=== PATIENT | female | born 1970 | race Caucasian/White ===

== ENCOUNTER 2016-10-15 14:24 | Emergency (ER) | payer BC ==
[~2016-10-15 14:24] MED LIST: Ciprofloxacin 500 MG Tab PO ONE
[2016-10-15 14:29] VITALS: BP 156/89
[2016-10-15] MEDS ORDERED: Lidocaine 1% 20 ML MDV ONE (15:17)
[2016-10-15] MEDS ORDERED: Take Home: Ciprofloxacin 500 MG Tab, 2 Tab Pack PO ONE (15:19)
[2016-10-15] MEDS ORDERED: cefTRIAXone 1 GM Vial IM ONE (15:19)
[2016-10-15] MEDS ORDERED: cefTRIAXone 1 GM Vial ONE (15:27)
--- NOTE | 2016-10-15 15:30 | EDM.PDOC ---
ED HPI GENERAL MEDICAL PROBLEM - General Chief Complaint: General Stated Complaint: abdominal pain Time Seen by Provider: 10/15/16 14:45 - History of Present Illness INITIAL COMMENTS - FREE TEXT/NARRATIVE: C/O of lower abdominal pain that is radiating into her back, denies pain with urination at this time. Onset: Today Duration: Minutes: Location: Reports: Abdomen, Back Quality: Reports: Sharp, Stabbing Severity: Moderate Improves with: Reports: None Worsens with: Reports: None Lower Anterior Abdominal Pain Score (Numeric/FACES): 6 - Related Data Allergies Allergy/AdvReac Type Severity Reaction Status Date / Time Penicillins Allergy Rash Verified 10/15/16 14:30 Home Meds: Home Meds Lisinopril 20 mg PO DAILY 10/15/16 [History] Past Medical History [employer] History: Reports: Social & Family History - Tobacco Use Smoking Status *Q: Never Smoker ED ROS GENERAL - Review of Systems Review Of Systems: ROS reveals no pertinent complaints other than HPI. ED EXAM, GENERAL - Physical Exam Exam: See Below Free Text/Narrative:: Mid lower abdominal tenderness noted. Exam Limited By: No Limitations General Appearance: Alert, WD/WN Ears: Normal External Exam Nose: Normal Inspection Throat/Mouth: Normal Inspection Head: Atraumatic Neck: Normal Inspection Respiratory/Chest: No Respiratory Distress Cardiovascular: Normal Peripheral Pulses GI/Abdominal: Normal Bowel Sounds, Soft, Tender Back Exam: Normal Inspection Extremities: Normal Inspection Neurological: Alert, Oriented Skin Exam: Warm, Dry Course - Vital Signs Last Recorded V/S: Last Vital Signs Temp 98.4 F 10/15/16 14:25 Pulse 95 10/15/16 14:25 Resp 18 10/15/16 14:25 BP 156/89 H 10/15/16 14:25 Pulse Ox 97 10/15/16 14:25 - Orders/Labs/Meds Orders: Active Orders 24 hr Category Date Time Status CULTURE URINE [RM] Stat Lab 10/15/16 14:42 Received Labs: Laboratory Tests 10/15/16 Range/Units 14:42 Urine Color Yellow (YELLOW) Urine Appearance Slightly cloudy (CLEAR) Urine pH 5.5 (4.5-8.0) Ur Specific [place] 1.014 (1.003-1.020) Urine Protein Trace H (NEGATIVE) mg/dL Urine Glucose (UA) Negative (NEGATIVE) mg/dL Urine Ketones 80 H (NEGATIVE) mg/dL Urine Occult Blood Large H (NEGATIVE) Urine Nitrite Negative (NEGATIVE) Urine Bilirubin Negative (NEGATIVE) Urine Urobilinogen 0.2 (0.2-1.0) EU/dL Ur Leukocyte Esterase Large H (NEGATIVE) Urine RBC 5-10 H (0-5) /HPF Urine WBC 75-100 H (0-5) /HPF Urine WBC Clumps Occasional H (NOT SEEN) /HPF Ur Squamous Epith Cells Few H (NOT SEEN) /HPF Urine Bacteria Few H (NOT SEEN) /HPF Urine Mucus Few H (NOT SEEN) /HPF Urinalysis Comment Meds: Medications Discontinued Medications Generic Name Dose Route Start Last Admin Trade Name Freq PRN Reason Stop Dose Admin Ceftriaxone Sodium 1 gm 10/15/16 15:19 Rocephin IM 10/15/16 15:20 ONETIME ONE Ciprofloxacin 1 packet 10/15/16 15:19 Take Home: Ciprofloxacin 500 Mg, 2 Tab Pack PO 10/15/16 15:20 ONETIME ONE Departure - Departure Time of Disposition: 15:27 Disposition: Home, Self-Care 01 Condition: Good Clinical Impression: UTI (urinary tract infection) - Discharge Information Instructions: Urinary Tract Infection, Adult Forms: ED Department Discharge Additional Instructions: Drink plenty of fluids, take your medications as prescribed. - My Orders Last 24 Hours: My Active Orders 10/15/16 14:42 CULTURE URINE [RM] Stat - Assessment/Plan Last 24 Hours: My Active Orders 10/15/16 14:42 CULTURE URINE [RM] Stat
== END 2016-10-15 16:05 | disposition home or self-care (01) ==
LOC: CC.ED 14:24
DX: N39.0 Urinary tract infection, site not specified (principal); Z88.0 Allergy status to penicillin
CPT/HCPCS: 81001; 87086; 96372; 99283; A9270; J0696; 87088; 87186

== ENCOUNTER 2016-10-17 19:30 | Inpatient (IN) | payer BC ==
[2016-10-17] MEDS ORDERED: Ondansetron 4 MG/2 ML SDV IVPUSH STA (19:48)
[2016-10-17] MEDS ORDERED: Morphine 4 MG/ML Syringe IVPUSH ONE (19:48)
[2016-10-17] MEDS ORDERED: Acetaminophen 325 MG Tab PO ONE (19:49)
[2016-10-17] MEDS ORDERED: Lactated Ringers 1,000 ML ONE (19:50)
[2016-10-17] MEDS ORDERED: Lactated Ringers 1,000 ML IV SCH (20:00)
[2016-10-17] MEDS ORDERED: metroNIDAZOLE/Normal Saline 500 MG in Premix Bag 1 BAG IV ONE (20:10)
[2016-10-17] MEDS ORDERED: Levofloxacin/Dextrose 5%-Water 500 MG in Premix Bag 1 BAG IV ONE (20:10)
[2016-10-17 20:12] LABS: CHLORIDE,CL 102 mEq/L (98-106); SODIUM,NA 138 mEq/L (136-145)
--- NOTE | 2016-10-17 23:07 | EDM.PDOC ---
ED HPI GENERAL MEDICAL PROBLEM - General Chief Complaint: Abdominal Pain Stated Complaint: abd pain Time Seen by Provider: 10/17/16 19:40 Source of Information: Reports: Patient History Limitations: Reports: No Limitations - History of Present Illness INITIAL COMMENTS - FREE TEXT/NARRATIVE: Izzy is a 46 yo female who presents to the ER via private vehicle with concerns of abdominal pain. States she was seen in the ER on Sunday afternoon and started on Ciprofloxacin and given 1 gram of Rocephin for a urinary tract infection. She states she did quite well yesterday and this morning. This afternoon she became nauseated and just didn't feel well. Admits to diarrhea yesterday but related this to the antibiotics. States around 6:30 this evening the pain progressively worsened. States she has been running a fever as well. States when pain previously started prior to coming in on Sunday the pain was in her back as well. She was concerned of a kidney stone. 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 Denies: Bloody Stool, Constipation, Flatus, Hematochezia, Melena : Reports: No Symptoms. Denies: Discharge, Flank Pain, Urgency ED EXAM, GI/ABD - Physical Exam Exam: See Below Exam Limited By: No Limitations General Appearance: Alert, Moderate Distress Ears: Normal External Exam, Hearing Grossly Normal, Normal TMs Nose: Normal Inspection, No Blood Throat/Mouth: Normal Inspection, Normal Lips, Normal Teeth, Normal Gums, Normal Oropharynx, Normal Voice, No Airway Compromise Head: Atraumatic, Normocephalic Neck: Normal Inspection, Supple Respiratory/Chest: No Respiratory Distress, Lungs Clear, Normal Breath Sounds, No Accessory Muscle Use Cardiovascular: Normal Peripheral Pulses, Regular Rate, Rhythm, No Edema, No Murmur GI/Abdominal Exam: Guarding, Rigid, Tender (RLQ and periumbilical), Abnormal Bowel Sounds (hyperactive). No: Hernia, Mass (Female) Exam: Normal External Exam, Cervical Discharge, Vaginal Discharge. No: Adnexal Mass, Adnexal Tenderness, Cervix Motion Tenderness, Enlarged Uterus , Vaginal Bleeding Extremities: Normal Inspection, No Pedal Edema, Normal Capillary Refill Neurological: Alert, Oriented, Normal Cognition Psychiatric: Normal Affect, Normal Mood Skin Exam: Dry, Intact, Normal Color, No Rash, Increased Warmth Course - Vital Signs Last Recorded V/S: Last Vital Signs Temp 102.6 F H 10/17/16 19:30 Pulse 107 H 10/17/16 19:30 Resp 20 10/17/16 19:30 BP 150/83 H 10/17/16 19:30 Pulse Ox 100 10/17/16 19:30 - Orders/Labs/Meds Orders: Active Orders 24 hr Category Date Time Status Abdomen Pelvis w Cont [CT] Stat Exams 10/17/16 19:49 Taken CHLAMYDIA/GC NUCLEIC ACID AMP [MREF] Stat Lab 10/17/16 22:30 Received CULTURE BLOOD [BC] Stat Lab 10/17/16 19:52 Received CULTURE BLOOD [BC] Stat Lab 10/17/16 19:52 Received CULTURE GENITAL [RM] Stat Lab 10/17/16 22:30 Received Lactated Ringers [Ringers, Lactated] 1,000 ml Med 10/17/16 20:00 Active IV ASDIRECTED Blood Culture x2 Reflex Set [OM.PC] Stat Oth 10/17/16 19:40 Ordered Medication Orders Lactated Ringer's (Ringers, Lactated) 1,000 mls @ 999 mls/hr IV ASDIRECTED DRISS Last Admin: 10/17/16 20:26 Dose: 999 mls/hr Labs: Laboratory Tests 07/25/17 07/25/17 07/25/17 Range/Units 19:52 19:52 22:30 WBC 10.2 H (5.0-10.0) 10^3/uL RBC 4.44 (4.00-5.50) 10^6/uL Hgb 12.0 (12.0-16.0) g/dL Hct 36.4 L (37.0-47.0) % MCV 82.0 (82.0-94.0) fL MCH 27.0 (27.0-32.0) pg MCHC 33.0 (33.0-38.0) g/dL RDW Coeff of Gale 12.6 (11.0-15.0) % Plt Count 215 (150-400) 10^3/uL Neut % (Auto) 82.5 (35-85) % Lymph % (Auto) 8.1 L (10-55) % [place] % (Auto) 8.7 (0-16) % Eos % (Auto) 0.5 (0-5) % Baso % (Auto) 0.2 (0-3) % Neut # (Auto) 8.41 H (1.80-7.00) 10^3/uL Lymph # (Auto) 0.83 L (1.00-4.80) 10^3/uL [place] # (Auto) 0.89 H (0.00-0.80) 10^3/uL Eos # (Auto) 0.05 (0.00-0.45) 10^3/uL Baso # (Auto) 0.02 10^3/uL Sodium 138 (136-145) mEq/L Potassium 3.4 L (3.5-5.0) mEq/L Chloride 102 (98-106) mEq/L Carbon Dioxide 24 (21-32) mmol/L BUN 12 (7-18) mg/dL Creatinine 1.1 H (0.6-1.0) mg/dL Est Cr Clr Drug Dosing TNP Estimated GFR (MDRD) 53 L (>=60) mL/min Glucose 107 H D (75-99) mg/dL Calcium 9.0 (8.4-10.1) mg/dL Total Bilirubin 1.0 (0.0-1.0) mg/dL AST 63 H (15-37) U/L ALT 64 (12-78) U/L Alkaline Phosphatase 159 H (46-116) U/L C-Reactive Protein 15.8 H (0.2-0.8) mg/dL Total Protein 7.3 (6.4-8.2) g/dL Albumin 3.4 (3.4-5.0) g/dL Amylase 31 (25-115) U/L Urine Color [place] (YELLOW) Urine Appearance Slightly cloudy (CLEAR) Urine pH 5.5 (4.5-8.0) Ur Specific [place] 1.015 (1.003-1.020) Urine Protein Trace H (NEGATIVE) mg/dL Urine Glucose (UA) Negative (NEGATIVE) mg/dL Urine Ketones 40 H (NEGATIVE) mg/dL Urine Occult Blood Small H (NEGATIVE) Urine Nitrite Negative (NEGATIVE) Urine Bilirubin Negative (NEGATIVE) Urine Urobilinogen 0.2 (0.2-1.0) EU/dL Ur Leukocyte Esterase Negative (NEGATIVE) Urine RBC 0-5 (0-5) /HPF Urine WBC 0-5 (0-5) /HPF Ur Epithelial Cells Few H (NOT SEEN) /HPF Meds: Medications Generic Name Dose Route Start Last Admin Trade Name Jose Raul PRN Reason Stop Dose Admin Lactated Ringer's 1,000 mls @ 999 mls/hr 10/17/16 20:00 10/17/16 20:26 Ringers, Lactated IV 999 mls/hr ASDIRECTED DRISS Administration Discontinued Medications Generic Name Dose Route Start Last Admin Trade Name Jose Raul PRN Reason Stop Dose Admin Acetaminophen 650 mg 10/17/16 19:49 10/17/16 20:04 Tylenol PO 10/17/16 19:50 650 mg NOW ONE Administration Lactated Ringer's Confirm 10/17/16 19:50 10/17/16 20:08 Ringers, Lactated Administered 10/17/16 19:51 Not Given Dose 1,000 mls @ as directed .ROUTE .STK-MED ONE Levofloxacin/Dextrose 500 mg/ 100 mls @ 100 mls/hr 10/17/16 20:10 10/17/16 20 :26 Premix IV 10/17/16 21:09 100 mls/hr ONETIME ONE Administration Metronidazole 500 mg/ Premix 100 mls @ 100 mls/hr 10/17/16 20:10 10/17/16 21: 39 IV 10/17/16 21:09 100 mls/hr ONETIME ONE Administration Morphine Sulfate 4 mg 10/17/16 19:48 10/17/16 20:06 Morphine IVPUSH 10/17/16 19:49 4 mg ONETIME ONE Administration Ondansetron HCl 4 mg 10/17/16 19:48 10/17/16 20:05 Zofran IVPUSH 10/17/16 19:49 4 mg NOW STA Administration - Re-Assessments/Exams Free Text/Narrative Re-Assessment/Exam: Izzy was given 4mg of Morphine, 4mg of Zofran, 500mg of Levaquin and 500mg of Flagyl in the ER while waiting for CT scan report with concerns of appendicitis. Pain was well controlled with the Morphine. After radiology report , radiologist was concerned of fluid filled and inflamed fallopian tubes with concerns of PID with possible abscess beginning to form. KELLIE, Wet prep, PAP, culture, G&C were all done. Moderate amount of pus-like drainage noted from the cervical os. No motion tenderness on bimanual exam. Dr. Hollingsworth contacted and advised consulting with [employer]CH [employer]ISTICS SUPERVISOR for further recommendations. Dr. Funk at [facility] in [place] was consulted. Advised starting IV antibiotics. Will initiate IV clindamycin and gentamicin. Temperature was improving after 650mg of Tylenol and currently 98.8. Will admit to Dr. Hollingsworth's services in acute care and agreement per Dr. Hollingsworth after consulting with DIRECTOR MICROBIOLOGY. Both Izzy and her verbalized understanding. She was transferred to the floor in satisfactory condition. Departure - Departure Time of Disposition: 23:00 Disposition: Admitted As Inpatient 64 Clinical Impression: Pelvic inflammatory disease (PID) - Discharge Information Forms: ED Department Discharge - Problem List & Annotations (1) Pelvic inflammatory disease (PID) SNOMED Code(s): 847539142 Code(s): N73.9 - FEMALE PELVIC INFLAMMATORY DISEASE, UNSPECIFIED Status: Acute Current Visit: Yes - My Orders Last 24 Hours: My Active Orders 10/17/16 19:40 Blood Culture x2 Reflex Set [OM.PC] Stat 10/17/16 19:49 Abdomen Pelvis w Cont [CT] Stat 10/17/16 19:52 CULTURE BLOOD [BC] Stat CULTURE BLOOD [BC] Stat 10/17/16 20:00 Lactated Ringers [Ringers, Lactated] 1,000 ml IV ASDIRECTED 10/17/16 22:30 CHLAMYDIA/GC NUCLEIC ACID AMP [MREF] Stat CULTURE GENITAL [RM] Stat - Assessment/Plan Admission H&P: Please use this note as an admission H&P Last 24 Hours: My Active Orders 10/17/16 19:40 Blood Culture x2 Reflex Set [OM.PC] Stat 10/17/16 19:49 Abdomen Pelvis w Cont [CT] Stat 10/17/16 19:52 CULTURE BLOOD [BC] Stat CULTURE BLOOD [BC] Stat 10/17/16 20:00 Lactated Ringers [Ringers, Lactated] 1,000 ml IV ASDIRECTED 10/17/16 22:30 CHLAMYDIA/GC NUCLEIC ACID AMP [MREF] Stat CULTURE GENITAL [RM] Stat
[2016-10-17] MEDS ORDERED: Docusate Sodium 100 MG Cap PO PRN (23:38)
[2016-10-17] MEDS ORDERED: Acetaminophen/HYDROcodone 325-5 MG Tab PO PRN (23:38)
[2016-10-17] MEDS ORDERED: Morphine 2 MG/ML Syringe IVPUSH PRN (23:38)
[2016-10-17] MEDS ORDERED: Temazepam 15 MG Cap PO PRN (23:38)
[2016-10-18] MEDS: Clindamycin Phosphate in D5W 600 MG in Premix Bag 1 BAG IV SCH ×8 (00:41→23:26)
[2016-10-18] MEDS: Clindamycin Phosphate in D5W 300 MG in Premix Bag 1 BAG IV SCH ×8 (00:43→23:30)
[2016-10-18] MEDS: Ibuprofen 200 MG Tab PO PRN (00:46)
[2016-10-18] MEDS: Ketorolac 30 MG/ML SDV IV PRN ×3 (00:46→20:19)
[2016-10-18] MEDS: Lactated Ringers 1,000 ML IV SCH ×2 (00:47→13:02)
[2016-10-18] MEDS: Lisinopril 20 MG Tab PO SCH (07:42)
[2016-10-18] MEDS: Ondansetron 4 MG/2 ML SDV IV PRN ×2 (07:46→15:59)
[2016-10-18 08:05] LABS: CHLORIDE,CL 105 mEq/L (98-106); SODIUM,NA 140 mEq/L (136-145)
--- NOTE | 2016-10-18 09:03 | PCM.PN ---
- General Info Date of Service: 10/18/16 Admission Dx/Problem (Free Text): PID Functional Status: Reports: Pain Controlled, Tolerating Diet, Ambulating, Urinating - Review of Systems General: Reports: Fever. Denies: Weakness, Fatigue HEENT: Reports: No Symptoms Pulmonary: Reports: No Symptoms Cardiovascular: Reports: No Symptoms Gastrointestinal: Reports: Abdominal Pain, Nausea. Denies: Constipation, Decreased Appetite, Diarrhea, Vomiting Genitourinary: Reports: No Symptoms Musculoskeletal: Reports: No Symptoms Skin: Reports: No Symptoms Neurological: Reports: No Symptoms - Patient Data Vitals - Most Recent: Last Vital Signs Temp 98.2 F 10/18/16 04:00 Pulse 76 10/18/16 04:00 Resp 18 10/18/16 04:00 BP 101/65 10/18/16 04:00 Pulse Ox 99 10/18/16 04:00 Weight - Most Recent: 194 lb 10.691 oz I&O - Last 24 Hours: Intake & Output 10/17/16 10/18/16 10/18/16 22:59 06:59 14:59 Intake Total 100 Balance 100 Lab Results Last 24 Hours: Laboratory Results - last 24 hr 10/18/16 10/18/16 Range/Units 07:33 07:33 WBC 10.0 (5.0-10.0) 10^3/uL RBC 3.77 L (4.00-5.50) 10^6/uL Hgb 10.2 L (12.0-16.0) g/dL Hct 31.5 L (37.0-47.0) % MCV 83.6 (82.0-94.0) fL MCH 27.1 (27.0-32.0) pg MCHC 32.4 L (33.0-38.0) g/dL RDW Coeff of Gale 12.6 (11.0-15.0) % Plt Count 196 (150-400) 10^3/uL Neut % (Auto) 77.2 (35-85) % Lymph % (Auto) 10.9 (10-55) % [place] % (Auto) 11.4 (0-16) % Eos % (Auto) 0.4 (0-5) % Baso % (Auto) 0.1 (0-3) % Neut # (Auto) 7.71 H (1.80-7.00) 10^3/uL Lymph # (Auto) 1.09 (1.00-4.80) 10^3/uL [place] # (Auto) 1.14 H (0.00-0.80) 10^3/uL Eos # (Auto) 0.04 (0.00-0.45) 10^3/uL Baso # (Auto) 0.01 10^3/uL Sodium 140 (136-145) mEq/L Potassium 3.4 L (3.5-5.0) mEq/L Chloride 105 (98-106) mEq/L Carbon Dioxide 28 (21-32) mmol/L BUN 8 (7-18) mg/dL Creatinine 0.8 (0.6-1.0) mg/dL Est Cr Clr Drug Dosing 83.63 mL/min Estimated GFR (MDRD) > 60 (>=60) mL/min Glucose 98 (75-99) mg/dL Calcium 8.4 (8.4-10.1) mg/dL C-Reactive Protein 15.8 H (0.2-0.8) mg/dL Med Orders - Current: Current Medications Acetaminophen (Tylenol) 650 mg PO Q4H PRN PRN Reason: Pain (Mild 1-3)/fever Hydrocodone Bitart/Acetaminophen ([place] 325-5 Mg) 1 tab PO Q4H PRN PRN Reason: Pain (moderate 4-6) Docusate Sodium (Colace) 100 mg PO BID PRN PRN Reason: Constipation Gentamicin Sulfate 120 mg/ (Sodium Chloride) 103 mls @ 200 mls/hr IV Q8H [facility] Last Admin: 10/18/16 02:40 Dose: 200 mls/hr Lactated Ringer's (Ringers, Lactated) 1,000 mls @ 125 mls/hr IV ASDIRECTED [facility] Last Admin: 10/18/16 00:47 Dose: 125 mls/hr Clindamycin Phosphate 300 mg/ (Premix) 50 mls @ 100 mls/hr IV Q8H [facility] Last Admin: 10/18/16 07:43 Dose: 100 mls/hr Ibuprofen (Motrin) 400 mg PO Q6H PRN PRN Reason: Pain (mild 1-3) Last Admin: 10/18/16 00:46 Dose: 400 mg Ketorolac Tromethamine (Toradol) 30 mg IV Q6H PRN PRN Reason: Pain (moderate 4-6) Last Admin: 10/18/16 00:46 Dose: 30 mg Lisinopril (Prinivil) 20 mg PO DAILY [facility] Last Admin: 10/18/16 07:42 Dose: 20 mg Morphine Sulfate (Morphine) 2 mg IVPUSH Q2H PRN PRN Reason: Pain (severe 7-10) Ondansetron HCl (Zofran) 4 mg IV Q4H PRN PRN Reason: Nausea/Vomiting Last Admin: 10/18/16 07:46 Dose: 4 mg Temazepam (Restoril) 15 mg PO BEDTIME PRN PRN Reason: Sleep Discontinued Medications Acetaminophen (Tylenol) 650 mg PO NOW ONE Stop: 10/17/16 19:50 Last Admin: 10/17/16 20:04 Dose: 650 mg Lactated Ringer's (Ringers, Lactated) 1,000 mls @ 999 mls/hr IV ASDIRECTED [facility] Last Admin: 10/17/16 20:26 Dose: 999 mls/hr Lactated Ringer's (Ringers, Lactated) Confirm Administered Dose 1,000 mls @ as directed .ROUTE .STK-MED ONE Stop: 10/17/16 19:51 Last Admin: 10/17/16 20:08 Dose: Not Given Levofloxacin/Dextrose 500 mg/ (Premix) 100 mls @ 100 mls/hr IV ONETIME ONE Stop: 10/17/16 21:09 Last Admin: 10/17/16 20:26 Dose: 100 mls/hr Metronidazole 500 mg/ Premix 100 mls @ 100 mls/hr IV ONETIME ONE Stop: 10/17/16 21:09 Last Admin: 10/17/16 21:39 Dose: 100 mls/hr Clindamycin Phosphate 600 mg/ (Premix) 50 mls @ 100 mls/hr IV Q8H [facility] Last Admin: 10/18/16 07:42 Dose: 100 mls/hr Morphine Sulfate (Morphine) 4 mg IVPUSH ONETIME ONE Stop: 10/17/16 19:49 Last Admin: 10/17/16 20:06 Dose: 4 mg Ondansetron HCl (Zofran) 4 mg IVPUSH NOW STA Stop: 10/17/16 19:49 Last Admin: 10/17/16 20:05 Dose: 4 mg - Exam General: Alert, Oriented HEENT: Mucous Membr. Moist/[place] Neck: Supple Lungs: Clear to Auscultation, Normal Respiratory Effort Cardiovascular: Regular Rate, Regular Rhythm GI/Abdominal Exam: Normal Bowel Sounds, Soft, Tender (LLQ and suprapubic area) Extremities: Normal Inspection, No Pedal Edema Skin: Warm, Dry Neurological: No New Focal Deficit - Problem List & Annotations (1) Pelvic inflammatory disease (PID) SNOMED Code(s): 499766311 Code(s): N73.9 - FEMALE PELVIC INFLAMMATORY DISEASE, UNSPECIFIED Status: Acute Priority: High Current Visit: Yes - Problem List Review Problem List Initiated/Reviewed/Updated: Yes - Assessment Assessment:: PID - Plan Plan:: Patient feeling better this am. Did tolerate breakfast although has been experiencing some nausea. States abdomen is much less rigid and less tender than last night. Labs this am note WBC stable at 10, CRP same at 15.8. Wet prep had shown 2+ WBC. UA is negative. Patient had previously been on Cipro for the last 3 days for a UTI but abdominal pain had steadily increased since that time. Will continue with Clindamycin and Gentamicin per ECONOMICS DEPARTMENT CHAIR recommendation. Patient is advised to notify us if pain increases; will monitor fevers, WBC. Await blood cultures and genital culture report.
[2016-10-18] MEDS: Acetaminophen 325 MG Tab PO PRN (15:59)
[2016-10-18] MEDS: Gentamicin 500 MG in Sodium Chloride 0.9% 100 ML IV SCH (21:08)
[2016-10-19] MEDS: Ondansetron 4 MG/2 ML SDV IV PRN (01:03)
[2016-10-19] MEDS: Ketorolac 30 MG/ML SDV IV PRN (03:56)
[2016-10-19] MEDS: Clindamycin Phosphate in D5W 600 MG in Premix Bag 1 BAG IV SCH ×6 (08:16→23:48)
[2016-10-19] MEDS: Clindamycin Phosphate in D5W 300 MG in Premix Bag 1 BAG IV SCH ×6 (08:16→23:52)
[2016-10-19] MEDS: Lisinopril 20 MG Tab PO SCH (08:16)
[2016-10-19] MEDS ORDERED: Sodium Chloride 0.9% 10 ML Syringe FLUSH PRN (08:52)
--- NOTE | 2016-10-19 09:20 | PCM.PN ---
- General Info Date of Service: 10/19/16 Admission Dx/Problem (Free Text): PID Functional Status: Reports: Pain Controlled, Tolerating Diet, Ambulating - Review of Systems General: Reports: Fever, Malaise. Denies: Weakness HEENT: Reports: No Symptoms Pulmonary: Reports: No Symptoms Cardiovascular: Reports: No Symptoms Gastrointestinal: Reports: Abdominal Pain, Diarrhea. Denies: Nausea, Vomiting Genitourinary: Reports: Other (denies any vaginal discharge). Denies: Dysuria, Frequency Musculoskeletal: Reports: No Symptoms Skin: Reports: No Symptoms Neurological: Reports: No Symptoms Psychiatric: Reports: No Symptoms - Patient Data Vitals - Most Recent: Last Vital Signs Temp 97.8 F 10/19/16 07:22 Pulse 88 10/19/16 07:22 Resp 19 10/19/16 07:22 BP 127/72 10/19/16 08:16 Pulse Ox 95 10/19/16 07:22 Weight - Most Recent: 194 lb 10.691 oz I&O - Last 24 Hours: Intake & Output 10/18/16 10/19/16 10/19/16 22:59 06:59 14:59 Intake Total 100 100 Balance 100 100 Lab Results Last 24 Hours: Laboratory Results - last 24 hr 10/19/16 10/19/16 Range/Units 08:00 08:00 WBC 8.2 (5.0-10.0) 10^3/uL RBC 3.66 L (4.00-5.50) 10^6/uL Hgb 10.0 L (12.0-16.0) g/dL Hct 30.7 L (37.0-47.0) % MCV 83.9 (82.0-94.0) fL MCH 27.3 (27.0-32.0) pg MCHC 32.6 L (33.0-38.0) g/dL RDW Coeff of Gale 12.6 (11.0-15.0) % Plt Count 203 (150-400) 10^3/uL Neut % (Auto) 77.7 (35-85) % Lymph % (Auto) 9.7 L (10-55) % [place] % (Auto) 12.1 (0-16) % Eos % (Auto) 0.4 (0-5) % Baso % (Auto) 0.1 (0-3) % Neut # (Auto) 6.36 (1.80-7.00) 10^3/uL Lymph # (Auto) 0.79 L (1.00-4.80) 10^3/uL [place] # (Auto) 0.99 H (0.00-0.80) 10^3/uL Eos # (Auto) 0.03 (0.00-0.45) 10^3/uL Baso # (Auto) 0.01 10^3/uL Sodium 139 (136-145) mEq/L Potassium 3.5 (3.5-5.0) mEq/L Chloride 104 (98-106) mEq/L Carbon Dioxide 27 (21-32) mmol/L BUN 8 (7-18) mg/dL Creatinine 1.0 (0.6-1.0) mg/dL Est Cr Clr Drug Dosing 66.90 mL/min Estimated GFR (MDRD) 59 L (>=60) mL/min Glucose 84 (75-99) mg/dL Calcium 8.2 L (8.4-10.1) mg/dL C-Reactive Protein 22.3 H (0.2-0.8) mg/dL Med Orders - Current: Current Medications Acetaminophen (Tylenol) 650 mg PO Q4H PRN PRN Reason: Pain (Mild 1-3)/fever Last Admin: 10/18/16 15:59 Dose: 650 mg Hydrocodone Bitart/Acetaminophen ([place] 325-5 Mg) 1 tab PO Q4H PRN PRN Reason: Pain (moderate 4-6) Docusate Sodium (Colace) 100 mg PO BID PRN PRN Reason: Constipation Clindamycin Phosphate 300 mg/ (Premix) 50 mls @ 100 mls/hr IV Q8H [facility] Last Admin: 10/19/16 08:16 Dose: 100 mls/hr Gentamicin Sulfate 500 mg/ (Sodium Chloride) 112.5 mls @ 112.5 mls/hr IV Q24H [facility] Last Admin: 10/18/16 21:08 Dose: 112.5 mls/hr Clindamycin Phosphate 600 mg/ (Premix) 50 mls @ 100 mls/hr IV Q8H [facility] Last Admin: 10/19/16 08:16 Dose: 100 mls/hr Ibuprofen (Motrin) 400 mg PO Q6H PRN PRN Reason: Pain (mild 1-3) Last Admin: 10/18/16 00:46 Dose: 400 mg Ketorolac Tromethamine (Toradol) 30 mg IV Q6H PRN PRN Reason: Pain (moderate 4-6) Last Admin: 10/19/16 03:56 Dose: 30 mg Lisinopril (Prinivil) 20 mg PO DAILY [facility] Last Admin: 10/19/16 08:16 Dose: 20 mg Morphine Sulfate (Morphine) 2 mg IVPUSH Q2H PRN PRN Reason: Pain (severe 7-10) Ondansetron HCl (Zofran) 4 mg IV Q4H PRN PRN Reason: Nausea/Vomiting Last Admin: 10/19/16 01:03 Dose: 4 mg Sodium Chloride (Saline Flush) 10 ml FLUSH ASDIRECTED PRN PRN Reason: Keep Vein Open Temazepam (Restoril) 15 mg PO BEDTIME PRN PRN Reason: Sleep Discontinued Medications Acetaminophen (Tylenol) 650 mg PO NOW ONE Stop: 10/17/16 19:50 Last Admin: 10/17/16 20:04 Dose: 650 mg Lactated Ringer's (Ringers, Lactated) 1,000 mls @ 999 mls/hr IV ASDIRECTED [facility] Last Admin: 10/17/16 20:26 Dose: 999 mls/hr Lactated Ringer's (Ringers, Lactated) Confirm Administered Dose 1,000 mls @ as directed .ROUTE .STK-MED ONE Stop: 10/17/16 19:51 Last Admin: 10/17/16 20:08 Dose: Not Given Levofloxacin/Dextrose 500 mg/ (Premix) 100 mls @ 100 mls/hr IV ONETIME ONE Stop: 10/17/16 21:09 Last Admin: 10/17/16 20:26 Dose: 100 mls/hr Metronidazole 500 mg/ Premix 100 mls @ 100 mls/hr IV ONETIME ONE Stop: 10/17/16 21:09 Last Admin: 10/17/16 21:39 Dose: 100 mls/hr Clindamycin Phosphate 600 mg/ (Premix) 50 mls @ 100 mls/hr IV Q8H [facility] Last Admin: 10/18/16 07:42 Dose: 100 mls/hr Gentamicin Sulfate 120 mg/ (Sodium Chloride) 103 mls @ 200 mls/hr IV Q8H [facility] Stop: 10/18/16 12:00 Last Admin: 10/18/16 10:00 Dose: 200 mls/hr Lactated Ringer's (Ringers, Lactated) 1,000 mls @ 125 mls/hr IV ASDIRECTED [facility] Last Admin: 10/18/16 13:02 Dose: 125 mls/hr Morphine Sulfate (Morphine) 4 mg IVPUSH ONETIME ONE Stop: 10/17/16 19:49 Last Admin: 10/17/16 20:06 Dose: 4 mg Ondansetron HCl (Zofran) 4 mg IVPUSH NOW STA Stop: 10/17/16 19:49 Last Admin: 10/17/16 20:05 Dose: 4 mg - Exam General: Alert, Oriented HEENT: Mucous Membr. Moist/[place] Neck: Supple Lungs: Clear to Auscultation, Normal Respiratory Effort Cardiovascular: Regular Rate, Regular Rhythm GI/Abdominal Exam: Normal Bowel Sounds, Soft, Tender (tender throughout but more so in the lower quads, left greater than right) Extremities: Normal Inspection, No Pedal Edema Skin: Warm, Dry Neurological: No New Focal Deficit Psy/Mental Status: Alert, Normal Affect, Normal Mood - Problem List & Annotations (1) Pelvic inflammatory disease (PID) SNOMED Code(s): 966746663 Code(s): N73.9 - FEMALE PELVIC INFLAMMATORY DISEASE, UNSPECIFIED Status: Acute Priority: High Current Visit: Yes - Problem List Review Problem List Initiated/Reviewed/Updated: Yes - My Orders Last 24 Hours: My Active Orders 10/18/16 20:00 Gentamicin 500 mg Sodium Chloride 0.9% [Normal Saline] 100 ml IV Q24H 10/19/16 08:00 GENTAMICIN-TROUGH [REF] Timed 10/19/16 08:50 Pelvis Non OB Comp [US] Routine 10/19/16 08:52 Sodium Chloride 0.9% [Saline Flush] 10 ml FLUSH ASDIRECTED PRN Convert IV to Saline Lock [OM.PC] Routine - Assessment Assessment:: PID - Plan Plan:: Patient feeling better this am. Did tolerate breakfast although has been experiencing some nausea. States abdomen is much less rigid and less tender than last night. Labs this am note WBC stable at 10, CRP same at 15.8. Wet prep had shown 2+ WBC. UA is negative. Patient had previously been on Cipro for the last 3 days for a UTI but abdominal pain had steadily increased since that time. Will continue with Clindamycin and Gentamicin per [employer] recommendation. Patient is advised to notify us if pain increases; will monitor fevers, WBC. Await blood cultures and genital culture report. 10-19-2016 Patient states she does feel better than on admit but continues to have discomfort in her abdomen. Is tolerating her meals. No nausea. Did have some mild diarrhea yesterday. Did have low grade fevers last night. Abdomen is bag machine tender in the lower quads, left greater than right. Bowel sounds active. Denies vaginal discharge Labs show improved WBC but CRP is increased from 15.8 to 22.3. Blood cultures thus far are negative. Awaiting results of genital culture. Creatinine is stable. Will stop IV fluids. Encouraged her to ambulate. Obtain a pelvic ultrasound this am due to increased CRP and ongoing pain. Continue Gentamicin and Cleocin. Inappropriate for discharge at this time due to fever last evening, ongoing pain and increased CRP.
[2016-10-19] MEDS: Acetaminophen 325 MG Tab PO PRN (15:43)
[2016-10-19] MEDS: Gentamicin 500 MG in Sodium Chloride 0.9% 100 ML IV SCH (19:52)
[2016-10-20] MEDS: Ibuprofen 200 MG Tab PO PRN (00:33)
[2016-10-20 07:46] LABS: CHLORIDE,CL 107 mEq/L (98-106); SODIUM,NA 142 mEq/L (136-145)
[2016-10-20] MEDS: Lisinopril 20 MG Tab PO SCH (08:27)
[2016-10-20] MEDS: Clindamycin Phosphate in D5W 600 MG in Premix Bag 1 BAG IV SCH ×2 (08:29)
[2016-10-20] MEDS: Clindamycin Phosphate in D5W 300 MG in Premix Bag 1 BAG IV SCH ×2 (08:30)
[2016-10-20 11:49] VITALS: BP 123/74
--- NOTE | 2016-10-22 21:38 | PCM.DCSUM1 ---
Discharge Summary - Hospital Course Free Text/Narrative:: Patient admitted with abdominal pain, fever. Had presented on Sunday for pain, found to have a UTI and started on antibiotics. Presented back on Sunday as pain was increasing. Running low grade fevers, 100.6 on admit. WBC 10.2, CRP 15.8, hemoglobin 12. CT scan of abdomen did show inflammatory changes of the fallopian tubes, concerning for PID. Camacho Polanco did contact [employer] for further recommendation. Did recommend starting Cleocin and Gentamicin. IV fluids started. Blood cultures ordered. Pelvic exam done, cultures, STD testing obtained - Discharge Data Discharge Date: 10/20/16 Discharge Disposition: Home, Self-Care 01 Condition: Good - Discharge Diagnosis/Problem(s) (1) Pelvic inflammatory disease (PID) SNOMED Code(s): 564558640 ICD Code: N73.9 - FEMALE PELVIC INFLAMMATORY DISEASE, UNSPECIFIED Status: Acute Priority: High - Patient Summary/Data Complications: none Hospital Course: Clinically patient did have improvement of her stay over the 3 days of admission. She had improvement of her abdominal pain, nausea. Tolerated meal intake. She did continue to spike low grade fevers at times each day. Overall , feeling much better by discharge. Ambulating in halls, minimal pain. Were concerned about increasing CRP despite normal WBC. Presented with CRP of 15.8, increased to 22 and then 25 on discharge day. Ultrasound of the pelvis was done but only noted concern was cyst in left ovary that will need to be monitored. Did leave message for Dr. Banks at [facility] but return call not yet received on further direction of care. Patient feeling much better and would like to try it home with oral antibiotics. Blood cultures, genital culture and STD testing all negative. Discharged home on Doxycycline. Will follow up next week with labs and recheck with Dr. Hollingsworth. - Patient Instructions Diet: Usual Diet as Tolerated Activity: As Tolerated Showering/Bathing: May Shower Notify Provider of: Fever, Increased Pain, Nausea and/or Vomiting - Discharge Plan Prescriptions/Med Rec: Doxycycline [Vibramycin] 100 mg PO Q12HR #20 tablet Hydrocodone/Acetaminophen [[place] 5-325 Tablet] 1 - 2 each PO Q6H #12 tablet Home Medications: Home Meds Lisinopril 20 mg PO DAILY 10/15/16 [History] Doxycycline [Vibramycin] 100 mg PO Q12HR #20 tablet 10/20/16 [Rx] Hydrocodone/Acetaminophen [[place] 5-325 Tablet] 1 - 2 each PO Q6H #12 tablet [Rx] Forms: ED Department Discharge Referrals: Crow Hollingsworth MD [Primary Care Provider] - (See Dr. Hollingsworth on Sunday ) - Discharge Summary/Plan Comment DC Time >30 min.: No Discharge Summary/Plan Comment: Discharge home on Doxycycline, [place]. Follow up next week with Dr. hollingsworth with repeat labs. - General Info Date of Service: 10/20/16 Admission Dx/Problem (Free Text: PID Functional Status: Reports: Pain Controlled, Tolerating Diet, Ambulating - Review of Systems General: Reports: Fever. Denies: Weakness HEENT: Reports: No Symptoms Pulmonary: Reports: No Symptoms Cardiovascular: Reports: No Symptoms Gastrointestinal: Reports: Abdominal Pain (mild in nature). Denies: Nausea, Vomiting Genitourinary: Reports: No Symptoms Musculoskeletal: Reports: No Symptoms Skin: Reports: No Symptoms Psychiatric: Reports: No Symptoms - Patient Data Vitals - Most Recent: Last Vital Signs Temp 98.0 F 10/20/16 11:49 Pulse 79 10/20/16 11:49 Resp 20 10/20/16 11:49 BP 123/74 10/20/16 11:49 Pulse Ox 98 10/20/16 11:49 Weight - Most Recent: 194 lb 10.691 oz Med Orders - Current: Current Medications Discontinued Medications Acetaminophen (Tylenol) 650 mg PO NOW ONE Stop: 10/17/16 19:50 Last Admin: 10/17/16 20:04 Dose: 650 mg Acetaminophen (Tylenol) 650 mg PO Q4H PRN PRN Reason: Pain (Mild 1-3)/fever Last Admin: 10/19/16 15:43 Dose: 650 mg Hydrocodone Bitart/Acetaminophen ([place] 325-5 Mg) 1 tab PO Q4H PRN PRN Reason: Pain (moderate 4-6) Last Admin: 10/19/16 23:54 Dose: 1 tab Docusate Sodium (Colace) 100 mg PO BID PRN PRN Reason: Constipation Lactated Ringer's (Ringers, Lactated) 1,000 mls @ 999 mls/hr IV ASDIRECTED [facility] Last Admin: 10/17/16 20:26 Dose: 999 mls/hr Lactated Ringer's (Ringers, Lactated) Confirm Administered Dose 1,000 mls @ as directed .ROUTE .STK-MED ONE Stop: 10/17/16 19:51 Last Admin: 10/17/16 20:08 Dose: Not Given Levofloxacin/Dextrose 500 mg/ (Premix) 100 mls @ 100 mls/hr IV ONETIME ONE Stop: 10/17/16 21:09 Last Admin: 10/17/16 20:26 Dose: 100 mls/hr Metronidazole 500 mg/ Premix 100 mls @ 100 mls/hr IV ONETIME ONE Stop: 10/17/16 21:09 Last Admin: 10/17/16 21:39 Dose: 100 mls/hr Clindamycin Phosphate 600 mg/ (Premix) 50 mls @ 100 mls/hr IV Q8H [facility] Last Admin: 10/18/16 07:42 Dose: 100 mls/hr Gentamicin Sulfate 120 mg/ (Sodium Chloride) 103 mls @ 200 mls/hr IV Q8H [facility] Stop: 10/18/16 12:00 Last Admin: 10/18/16 10:00 Dose: 200 mls/hr Lactated Ringer's (Ringers, Lactated) 1,000 mls @ 125 mls/hr IV ASDIRECTED [facility] Last Admin: 10/18/16 13:02 Dose: 125 mls/hr Clindamycin Phosphate 300 mg/ (Premix) 50 mls @ 100 mls/hr IV Q8H [facility] Last Admin: 10/20/16 08:30 Dose: 100 mls/hr Gentamicin Sulfate 500 mg/ (Sodium Chloride) 112.5 mls @ 112.5 mls/hr IV Q24H [facility] Last Admin: 10/19/16 19:52 Dose: 112.5 mls/hr Clindamycin Phosphate 600 mg/ (Premix) 50 mls @ 100 mls/hr IV Q8H [facility] Last Admin: 10/20/16 08:29 Dose: 100 mls/hr Ibuprofen (Motrin) 400 mg PO Q6H PRN PRN Reason: Pain (mild 1-3) Last Admin: 10/20/16 00:33 Dose: 400 mg Ketorolac Tromethamine (Toradol) 30 mg IV Q6H PRN PRN Reason: Pain (moderate 4-6) Last Admin: 10/19/16 03:56 Dose: 30 mg Lisinopril (Prinivil) 20 mg PO DAILY [facility] Last Admin: 10/20/16 08:27 Dose: 20 mg Morphine Sulfate (Morphine) 4 mg IVPUSH ONETIME ONE Stop: 10/17/16 19:49 Last Admin: 10/17/16 20:06 Dose: 4 mg Morphine Sulfate (Morphine) 2 mg IVPUSH Q2H PRN PRN Reason: Pain (severe 7-10) Ondansetron HCl (Zofran) 4 mg IVPUSH NOW STA Stop: 10/17/16 19:49 Last Admin: 10/17/16 20:05 Dose: 4 mg Ondansetron HCl (Zofran) 4 mg IV Q4H PRN PRN Reason: Nausea/Vomiting Last Admin: 10/19/16 01:03 Dose: 4 mg Sodium Chloride (Saline Flush) 10 ml FLUSH ASDIRECTED PRN PRN Reason: Keep Vein Open Temazepam (Restoril) 15 mg PO BEDTIME PRN PRN Reason: Sleep - Exam General: Reports: Alert, Oriented HEENT: Reports: Mucous Membr. Moist/[place] Neck: Reports: Supple Lungs: Reports: Clear to Auscultation, Normal Respiratory Effort Cardiovascular: Reports: Regular Rate, Regular Rhythm GI/Abdominal Exam: Normal Bowel Sounds, Soft, Non-Tender Extremities: Normal Inspection, No Pedal Edema Skin: Reports: Warm, Dry Neurological: Reports: No New Focal Deficit *Q Meaningful Use (DIS) - VTE *Q VTE Criteria *Q: - Stroke *Q Stroke Criteria *Q: - AMI *Q AMI Criteria *Q:
== END 2016-10-20 12:45 | disposition home or self-care (01) | DRG 531 ==
LOC: CC.ED 19:30 → UNDOADMIN 23:15 → CC.MS 23:15
PROVIDERS: ADMIT Physician Assistant Medical; ATTEND Family Medicine
DX: N73.9 Female pelvic inflammatory disease, unspecified (principal); I10 Essential (primary) hypertension; N83.202 Unspecified ovarian cyst, left side
CPT/HCPCS: 36415; 74177; 76830; 76856; 80048; 80053; 80170; 81001; 81025; 82150; 85025; 86140; 87040; 87070; 87210; 87220; 87491; 87591; 96365; 96367; 96375; 99285; A9270-GY; J1580; J1885; J1956; J2270; J2405; J7050; J7120; Q9967

== ENCOUNTER 2018-08-30 19:04 | Emergency (ER) | payer BC ==
[2018-08-30] MEDS ORDERED: Naproxen 500 MG Tab PO ONE (19:05)
[2018-08-30] MEDS ORDERED: Acetaminophen/HYDROcodone 325-5 MG Tab PO ONE (19:05)
[2018-08-30 19:10] VITALS: BP 154/82
--- NOTE | 2018-08-30 19:42 | EDM.PDOC ---
ED HPI GENERAL MEDICAL PROBLEM - General Chief Complaint: Upper Extremity Injury/Pain Stated Complaint: R arm injury/pain Time Seen by Provider: 08/30/18 19:30 Source of Information: Reports: Patient History Limitations: Reports: No Limitations - History of Present Illness INITIAL COMMENTS - FREE TEXT/NARRATIVE: Patient presents to ER per private vehicle with right shoulder pain. States was getting out of shower and fell, landing on an outstretched arm. Rochelle like her shoulder popped. Had considerable pain. Now has pain with movement. No previous shoulder concerns. No numbness or tingling in her fingers. No head injury. No loss of consciousness. Onset: Today, Sudden Duration: Minutes:, Improving Location: Reports: Upper Extremity, Right Quality: Reports: Ache, Sharp Severity: Moderate Improves with: Reports: Rest Worsens with: Reports: Movement Context: Reports: Trauma Associated Symptoms: Reports: No Other Symptoms Right Shoulder Pain Score (Numeric/FACES): 5 - Related Data Allergies Allergy/AdvReac Type Severity Reaction Status Date / Time Penicillins Allergy Rash Verified 08/30/18 19:05 Home Meds: Home Meds Lisinopril 20 mg PO BEDTIME 10/15/16 [History] Past Medical History Cardiovascular History: Reports: Hypertension [employer] History: Reports: - Past Surgical History HEENT Surgical History: Reports: Other (See Below) Other HEENT Surgeries/Procedures: 2 Ear surgeries Female Surgical History: Reports: Breast Reduction, Section Musculoskeletal Surgical History: Reports: Arthroscopic Knee Social & Family History - Family History Family Medical History: Noncontributory - Caffeine Use Caffeine Use: Reports: None Review of Systems - Review of Systems Review Of Systems: See Below Constitutional: Reports: No Symptoms Eyes: Denies: Blurred Vision, Vision Change Ears: Denies: Pain, Bloody Discharge Nose: Denies: Epistaxis Mouth/Throat: Reports: No Symptoms Respiratory: Denies: Shortness of Breath Cardiovascular: Reports: No Symptoms GI/Abdominal: Reports: No Symptoms Musculoskeletal: Reports: Shoulder Pain, Arm Pain Skin: Reports: No Symptoms Neurological: Denies: Confusion, Dizziness, Headache, Syncope, Weakness ED EXAM, GENERAL - Physical Exam Exam: See Below Exam Limited By: No Limitations General Appearance: Alert, WD/WN, No Apparent Distress Ears: Normal External Exam, Normal TMs Nose: Normal Inspection, Normal Mucosa, No Blood Throat/Mouth: Normal Inspection, Normal Oropharynx Head: Normocephalic Neck: Normal Inspection, Supple, Non-Tender, Full Range of Motion Respiratory/Chest: No Respiratory Distress, Lungs Clear, Normal Breath Sounds Cardiovascular: Regular Rate, Rhythm Extremities: Normal Inspection, Limited Range of Motion (pain with abduction and external rotation of right upper extremity; no bruising or swelling noted. Tender with palpation to upper arm) Neurological: Alert, Oriented Skin Exam: Warm, Dry Course - Vital Signs Last Recorded V/S: Last Vital Signs Temp 97.6 F 08/30/18 19:06 Pulse 76 08/30/18 19:06 Resp 20 08/30/18 19:06 BP 154/82 H 08/30/18 19:06 Pulse Ox 100 08/30/18 19:06 - Orders/Labs/Meds Orders: Active Orders 24 hr Category Date Time Status Humerus Rt [CR] Stat Exams 08/30/18 19:13 Taken Shoulder Comp Rt [CR] Stat Exams 08/30/18 19:12 Taken Meds: Medications Discontinued Medications Generic Name Dose Route Start Last Admin Trade Name Jose Raul PRN Reason Stop Dose Admin Hydrocodone Bitart/Acetaminophen 2 packet 08/30/18 19:43 08/30/18 19:50 Take Home: Acetaminophen/Hydrocod, 2 Tab Pack PO 08/30/18 19:44 2 packet ONETIME ONE Administration Naproxen 1 packet 08/30/18 19:43 08/30/18 19:50 Take Home: Naproxen 500 Mg, 4 Tab Pack PO 08/30/18 19:44 1 packet ONETIME ONE Administration - Re-Assessments/Exams Free Text/Narrative Re-Assessment/Exam: 08/30/18 Xrays reviewed. No obvious fracture or dislocation. Arm placed in sling for comfort. Departure - Departure Time of Disposition: 19:42 Disposition: Home, Self-Care 01 Condition: Good Clinical Impression: Right shoulder strain - Discharge Information *PRESCRIPTION DRUG MONITORING PROGRAM REVIEWED*: No *COPY OF PRESCRIPTION DRUG MONITORING REPORT IN PATIENT ADRIENNE: No Referrals: Elaine Polanco PA-C [Primary Care Provider] - Forms: ED Department Discharge Additional Instructions: 1. Rest 2. Ice frequently tonight 3. Sling as needed for comfort 4. Naproxen 500 mg twice a day~ a dose tonight and then in am. Switch to Meloxicam in am and take daily for 14 days 5. [place] 1-2 tabs as needed every 6 hours for pain 6. Return in 5-7 days if pain persists, may need MRI - My Orders Last 24 Hours: My Active Orders 08/30/18 19:12 Shoulder Comp Rt [CR] Stat 08/30/18 19:13 Humerus Rt [CR] Stat - Assessment/Plan Last 24 Hours: My Active Orders 08/30/18 19:12 Shoulder Comp Rt [CR] Stat 08/30/18 19:13 Humerus Rt [CR] Stat
[2018-08-30] MEDS ORDERED: Take Home: Naproxen 500 MG Tab, 4 Tab Pack PO ONE (19:43)
[2018-08-30] MEDS ORDERED: Take Home: Acetaminophen/HYDROcodone 325-5 MG, 2 Tab Pack PO ONE (19:43)
== END 2018-08-30 19:54 | disposition home or self-care (01) ==
LOC: CC.ED 19:04
DX: S46.911A Strain of unspecified muscle, fascia and tendon at shoulder and upper arm level, right arm, initial encounter (principal); I10 Essential (primary) hypertension; Z88.0 Allergy status to penicillin; W19.XXXA Unspecified fall, initial encounter
CPT/HCPCS: 73030; 73060; 99283; A9270